=== PATIENT | male | born 1960 | race Hispanic/Latino ===

== ENCOUNTER 2021-10-24 23:23 | Emergency (ER) | payer OTHER, SELFPAY ==
[~2021-10-24] VITALS: Ht 167.6 cm; Wt 127.0 kg
[~2021-10-24 23:23] MED LIST: CPAP; LEVO500T2 PO; [UNRECOGNIZED DRUG - SUPPLY]; [UNRECOGNIZED DRUG - SUPPLY]
[2021-10-25] MEDS ORDERED: ATOR10 PO (00:42)
[2021-10-25] MEDS ORDERED: PANT40TA54 PO (00:42)
[2021-10-25] MEDS ORDERED: CLOP75TA32 PO (00:42)
[2021-10-25] MEDS ORDERED: EMPA25TA PO (00:42)
[2021-10-25] MEDS ORDERED: FURO40TA5 PO (00:42)
[2021-10-25] MEDS ORDERED: TAMS-1 PO (00:42)
[2021-10-25 01:25] LABS: BASOPHILS % (AUTO) 0.6 % (0.0-5.0); EOSINOPHILS % (AUTO) 1.9 % (0.0-8.0); LYMPHOCYTES % (AUTO) 31.4 % (21.0-51.0); MEAN CORPUSCULAR HGB CONC 33.7 g/dL (32.0-36.0); MEAN CORPUSCULAR VOLUME 92.1 fL (79-99); MONOCYTES % (AUTO) 8.6 % (3.0-13.0); NEUTROPHILS % (AUTO) 57.1 % (40.0-77.0); PLATELET COUNT (AUTO) 164 K/uL (130-400); RED BLOOD CELL COUNT(AUTO) 4.45 MIL/uL (4.50-6.20); RED CELL DISTRIBUTION WIDTH 13.3 % (11.0-15.5); WHITE BLOOD COUNT (AUTO) 7.8 K/uL (4.8-10.8)
[2021-10-25 01:29] LABS: APPEARANCE,URINE Clear (CLEAR); BILIRUBIN,URINE Negative (NEGATIVE); COLOR,URINE Yellow (YELLOW); GLUCOSE, URINE (UA) >=1000 mg/dL (NEGATIVE); KETONES,URINE Trace mg/dL (NEGATIVE); LEUKOCYTE ESTERASE ,URINE Negative (NEGATIVE); NITRATE,URINE Negative (NEGATIVE); OCCULT BLOOD,URINE Negative (NEGATIVE); PROTEIN,URINE Trace mg/dL (NEGATIVE)
[2021-10-25 01:37] LABS: POTASSIUM 3.4 mmol/L (3.5-5.1)
[2021-10-25 01:39] LABS: BACTERIA,URINE Few /HPF (None Seen); MUCUS,URINE Few LPF (None Seen); RBC,URINE 0-1 /HPF (0-1)
[2021-10-25 01:42] LABS: BILIRUBIN,TOTAL 0.2 mg/dL (0.2-1.0); TOTAL PROTEIN, SERUM 7.1 g/dL (6.0-8.3)
[2021-10-25 01:46] LABS: B-TYPE NATRIURETIC PEPTIDE 23 pg/mL (0-100)
[2021-10-25 04:26] VITALS: BP 148/97
== END 2021-10-25 04:31 | disposition home or self-care (01) ==
LOC: EDH 23:23
DX: R42 Dizziness and giddiness (principal); I25.10 Atherosclerotic heart disease of native coronary artery without angina pectoris; R55 Syncope and collapse; R51.9 Headache, unspecified; E11.9 Type 2 diabetes mellitus without complications; I10 Essential (primary) hypertension; Z79.899 Other long term (current) drug therapy; Z88.5 Allergy status to narcotic agent; Z95.5 Presence of coronary angioplasty implant and graft
CPT/HCPCS: 36415; 70450; 71045; 80053; 81001; 83880; 84484; 85025; 85378; 93005